=== PATIENT | male | born 1985 | race Caucasian/White ===

== ENCOUNTER 2017-06-17 08:40 | Emergency (ER) | payer SELFPAY ==
--- NOTE | 2017-06-17 09:16 | EDM.PDOC ---
ED HPI GENERAL MEDICAL PROBLEM - General Chief Complaint: Abdominal Pain Stated Complaint: PAIN UPPER MID ABDOMINAL PAIN Time Seen by Provider: 06/17/17 09:08 Source of Information: Reports: Patient History Limitations: Reports: No Limitations - History of Present Illness INITIAL COMMENTS - FREE TEXT/NARRATIVE: 32-year-old male has had several episodes of sharp stabbing epigastric pain over the past 12 hours. His first pain was last evening prior to going to bed, he woke up at 1 AM with pain that resolved. When he woke this morning he had a very dull pain but at work experienced another sharp pain so came in to be seen. No nausea or vomiting, no fever, bowels are moving normally, no past history of abdominal surgeries. No radiation of pain to the back or lower abdomen, no urinary symptoms. Now in the emergency room he has no symptoms. Onset: Sudden Duration: Waxing/Waning (Over the last 12 hours) Location: Reports: Abdomen Severity: Moderate (When the pain occurs, he has no pain currently) Associated Symptoms: Reports: No Other Symptoms Middle Abdominal Pain Score (Numeric/FACES): 3 - Related Data Allergies Allergy/AdvReac Type Severity Reaction Status Date / Time No Known Allergies Allergy Verified 06/17/17 09:09 Home Meds: Home Meds NK [No Known Home Meds] 06/17/17 [History] ED ROS GENERAL - Review of Systems Review Of Systems: See Below Constitutional: Denies: Fever, Chills, Malaise HEENT: Reports: No Symptoms Respiratory: Denies: Shortness of Breath Cardiovascular: Denies: Chest Pain GI/Abdominal: Reports: Abdominal Pain. Denies: Constipation, Diarrhea, Decreased Appetite, Nausea, Vomiting : Reports: No Symptoms Musculoskeletal: Reports: No Symptoms Neurological: Reports: Other (Had a significant head injury at age 17) Psychiatric: Reports: No Symptoms ED EXAM, GI/ABD - Physical Exam Exam: See Below Exam Limited By: No Limitations General Appearance: Alert, No Apparent Distress Eyes: Bilateral: Normal Appearance (No jaundice) Respiratory/Chest: No Respiratory Distress, Lungs Clear, Other (I cannot elicit any pain with palpation of the anterior chest wall) Cardiovascular: Regular Rate, Rhythm GI/Abdominal Exam: Normal Bowel Sounds, Soft, Non-Tender, Other (I cannot reproduce any pain with palpation) Extremities: Normal Inspection Neurological: Alert, Oriented Psychiatric: Normal Affect, Normal Mood Skin Exam: Warm, Dry, Other (No rash over the abdomen or chest) Course - Vital Signs Last Recorded V/S: Last Vital Signs Temp 98.1 F 06/17/17 08:58 Pulse 97 06/17/17 08:58 Resp 14 06/17/17 08:58 BP 136/102 H 06/17/17 08:58 Pulse Ox 97 06/17/17 08:58 - Orders/Labs/Meds Labs: Laboratory Tests 06/17/17 06/17/17 Range/Units 09:26 09:26 WBC 9.4 (4.5-11.0) K/uL RBC 5.28 (4.30-5.90) M/uL Hgb 16.7 H (12.0-15.0) g/dL Hct 47.9 (40.0-54.0) % MCV 91 (80-98) fL MCH 32 H (27-31) pg MCHC 35 (32-36) % Plt Count 268 (150-400) K/uL Neut % (Auto) 68 H (36-66) % Lymph % (Auto) 16 L (24-44) % Cochran % (Auto) 8 H (2-6) % Eos % (Auto) 7 H (2-4) % Baso % (Auto) 0 (0-1) % Sodium 141 (140-148) mmol/L Potassium 4.3 (3.6-5.2) mmol/L Chloride 103 (100-108) mmol/L Carbon Dioxide 29 (21-32) mmol/L Anion Gap 8.9 (5.0-14.0) mmol/L BUN 10 (7-18) mg/dL Creatinine 1.0 (0.8-1.3) mg/dL Est Cr Clr Drug Dosing 125.58 mL/min Estimated GFR (MDRD) > 60 (>60) Glucose 94 (74-106) mg/dL Calcium 9.0 (8.5-10.1) mg/dL Total Bilirubin 0.3 (0.2-1.0) mg/dL AST 17 (15-37) U/L ALT 44 (12-78) U/L Alkaline Phosphatase 107 (46-116) U/L Total Protein 7.1 (6.4-8.2) g/dL Albumin 3.8 (3.4-5.0) g/dL Globulin 3.3 (2.3-3.5) g/dL Albumin/Globulin Ratio 1.2 (1.2-2.2) Amylase 58 (25-115) U/L - Re-Assessments/Exams Free Text/Narrative Re-Assessment/Exam: 06/17/17 09:30 I have the patient stand, heel strike on the floor and it did not reproduce pain. There doesn't seem to be any peritoneal component to the pain. A CBC, CMP , UA and flat and upright abdomen x-ray was obtained. 06/17/17 10:02 Patient's entire chemistry profile including amylase and lipase was normal. White count was normal. He was observed in the ER for one hour and had no additional symptoms. I did order a UA but he was unable to give that over the course of the hour and I don't feel it is necessary so it was canceled. He will return if symptoms recur, a gallbladder ultrasound or other imaging may be necessary. Departure - Departure Time of Disposition: 10:28 Disposition: Home, Self-Care 01 Condition: Good Clinical Impression: Abdominal pain Qualifiers: Abdominal location: upper abdomen, unspecified Qualified Code(s): R10.10 - Upper abdominal pain, unspecified - Discharge Information Instructions: Abdominal Pain, Adult, [id number] Referrals: PCP,None [Primary Care Provider] - Forms: ED Department Discharge Care Plan Goals: Advance diet as tolerated concentrating on liquids initially. Repeat turn if pain recurs and is persistent, especially if fever.
--- NOTE | 2017-06-17 11:03 | CR ---
Abdomen 2V AP Flat Upright HISTORY: pain FINDINGS: Bowel gas pattern is nonspecific. No obstruction or free air is identified. No soft tissue mass, orga nomegaly, or abnormal calcifications are seen. Bony structures are unremarkable. IMPRESSION: Nonspecific abdomen.
== END 2017-06-17 10:22 | disposition home or self-care (01) ==
LOC: JP.ED 08:40
DX: R10.10 Upper abdominal pain, unspecified (principal)
CPT/HCPCS: 36415; 74020; 74020-26; 80053; 82150; 85025; 99283; 99284

== ENCOUNTER 2020-05-25 17:07 | Emergency (ER) | payer SELFPAY ==
[2020-05-25] MEDS ORDERED: Ketorolac 60 MG/2 ML SDV IM ONE (17:42)
--- NOTE | 2020-05-25 17:47 | EDM.PDOC ---
ED HPI GENERAL MEDICAL PROBLEM - General Chief Complaint: Upper Extremity Injury/Pain Stated Complaint: RT ARM PAIN Time Seen by Provider: 05/25/20 17:33 Source of Information: Reports: Patient, RN Notes Reviewed History Limitations: Reports: No Limitations - History of Present Illness INITIAL COMMENTS - FREE TEXT/NARRATIVE: 34-year-old gentleman presents emergency department with a complaint of right arm pain, this is his dominant hand he thinks he may have injured it a couple weeks ago when he was rockclimbing he continues to do various things at work lifting and supination which may aggravate it he has not really tried anything for the pain Right Arm Pain Score (Numeric/FACES): 2 - Related Data Allergies Allergy/AdvReac Type Severity Reaction Status Date / Time No Known Allergies Allergy Verified 05/25/20 17:22 Home Meds: Home Meds Ketorolac [Toradol] 10 mg PO Q6H PRN #20 tab 05/25/20 [Rx] Past Medical History HEENT History: Reports: Impaired Vision Cardiovascular History: Reports: None Neurological History: Reports: Head Trauma Psychiatric History: Reports: Depression - Infectious Disease History Infectious Disease History: Reports: Chicken Pox - Past Surgical History Head Surgeries/Procedures: Reports: None HEENT Surgical History: Reports: None Cardiovascular Surgical History: Reports: Other (See Below) Other Cardiovascular Surgeries/Procedures: HEAD INJURY, SHORT TERM MEMORY LOSS, WHIPLASH Neurological Surgical History: Reports: Other (See Below) Other Neurological Surgeries/Procedures: SEE HEENT Dermatological Surgical History: Reports: None Social & Family History - Tobacco Use Smoking Status *Q: Former Smoker Used Tobacco, but Quit: Yes Month/Year Tobacco Last Used: 2006 Second Hand Smoke Exposure: No - Caffeine Use Caffeine Use: Reports: Soda - Recreational Drug Use Recreational Drug Use: No Review of Systems - Review of Systems Review Of Systems: See Below Constitutional: Reports: No Symptoms Musculoskeletal: Reports: Arm Pain ED EXAM, GENERAL - Physical Exam Exam: See Below Free Text/Narrative:: Examination of the right arm he is point tender at the insertion of the biceps tendon inferiorly it is exacerbated by flexing and supination, radial pulses +2 Exam Limited By: No Limitations General Appearance: Alert, WD/WN, No Apparent Distress Respiratory/Chest: No Respiratory Distress Course - Vital Signs Last Recorded V/S: Last Vital Signs Temp 98.2 F 05/25/20 17:23 Pulse 86 05/25/20 17:23 Resp 16 05/25/20 17:23 BP 142/100 H 05/25/20 17:23 Pulse Ox 97 05/25/20 17:23 - Orders/Labs/Meds Orders: Active Orders 24 hr Category Date Time Status Ketorolac [Toradol] Med 05/25/20 17:42 Once 60 mg IM ONETIME ONE Departure - Departure Time of Disposition: 17:46 Disposition: Home, Self-Care 01 Condition: Fair Clinical Impression: Biceps tendinitis on right - Discharge Information Instructions: Tendinitis Referrals: Ruben Bah MD [Primary Care Provider] - Additional Instructions: Try the ketorolac as needed for pain control, try various resting maneuvers at work and trying to find an alternative method then using her dominant hand to give this tendon rest, please followup with your primary care provider in 7-10 days if not better, please call return to the emergency department with worsening of symptoms. Sepsis Event Note (ED) - Evaluation Sepsis Screening Result: No Definite Risk - Focused Exam Vital Signs: Vital Signs Temp Pulse Resp BP Pulse Ox 05/25/20 17:23 98.2 F 86 16 142/100 H 97 05/25/20 17:17 98.2 F 86 16 142/100 H 97 - My Orders Last 24 Hours: My Active Orders 05/25/20 17:42 Ketorolac [Toradol] 60 mg IM ONETIME ONE - Assessment/Plan Last 24 Hours: My Active Orders 05/25/20 17:42 Ketorolac [Toradol] 60 mg IM ONETIME ONE Plan: Assessment Acuity = acute Site and laterality = biceps tendinitis Etiology = secondary to overuse injury Manifestations = none Location of injury = Home Lab values = none Plan He had some relief with the Toradol injection provided in the ED prescription for ketorolac 10 mg p.o. every 6 hours as needed total #20 I did offer him referral to orthopedics which he declined he is going to try alternative methods at work otherwise follow-up with his primary This note was dictated using [employer] voice recognition software please call with any questions on syntax or grammar.
== END 2020-05-25 18:04 | disposition home or self-care (01) ==
LOC: JP.ED 17:07
DX: M75.21 Bicipital tendinitis, right shoulder (principal); Z87.891 Personal history of nicotine dependence
CPT/HCPCS: 96372; 99283; J1885

== ENCOUNTER 2020-09-27 23:36 | Emergency (ER) | payer SELFPAY ==
[2020-09-27] MEDS: Bupivacaine 0.5% 10 ML SDV INJECT ONE (23:55)
--- NOTE | 2020-09-28 00:31 | EDM.PDOC ---
ED HPI GENERAL MEDICAL PROBLEM - General Chief Complaint: Laceration Stated Complaint: CUT RIGHT THUMB Time Seen by Provider: 09/27/20 23:45 Source of Information: Reports: Patient History Limitations: Reports: No Limitations - History of Present Illness INITIAL COMMENTS - FREE TEXT/NARRATIVE: 35-year-old male with a right thumb injury, his thumb was struck by a table saw. He has a very deep macerated laceration from the IP joint curving upward along the radial aspect of the thumb through the nail into the tip of the thumb. Onset: Sudden Duration: Hour(s): (Within the last hour) Location: Reports: Upper Extremity, Right Associated Symptoms: Reports: No Other Symptoms right thumb Pain Score (Numeric/FACES): 6 - Related Data Allergies Allergy/AdvReac Type Severity Reaction Status Date / Time No Known Allergies Allergy Verified 09/27/20 23:46 Home Meds: Home Meds NK [No Known Home Meds] 09/27/20 [History] Past Medical History HEENT History: Reports: Impaired Vision Cardiovascular History: Reports: Arrhythmia Neurological History: Reports: Head Trauma Psychiatric History: Reports: Depression - Infectious Disease History Infectious Disease History: Reports: Chicken Pox - Past Surgical History Head Surgeries/Procedures: Reports: None HEENT Surgical History: Reports: None Cardiovascular Surgical History: Reports: Other (See Below) Other Cardiovascular Surgeries/Procedures: HEAD INJURY, SHORT TERM MEMORY LOSS, WHIPLASH Neurological Surgical History: Reports: Other (See Below) Other Neurological Surgeries/Procedures: SEE HEENT Dermatological Surgical History: Reports: None Social & Family History - Tobacco Use Tobacco Use Status *Q: Never Tobacco User - Caffeine Use Caffeine Use: Reports: Soda - Recreational Drug Use Recreational Drug Use: No ED ROS GENERAL - Review of Systems Review Of Systems: See Below Constitutional: Reports: Malaise. Denies: Fever, Chills GI/Abdominal: Reports: Nausea Skin: Reports: Pallor, Diaphoresis Neurological: Reports: Dizziness ED EXAM, SKIN/RASH Exam: See Below Exam Limited By: No Limitations General Appearance: Alert, Mild Distress, Other (Patient is very anxious and somewhat vagal with pallor) Head: Atraumatic Respiratory/Chest: No Respiratory Distress Extremities: Other (Exam is otherwise limited to the right hand. The patient has a significant and very deep laceration 5 cm long across the tip of the thumb through the radial aspect of the nail and down curving across the base of the pulp just distal to the DIP joint. There is capillary refill and slight sensation to the pulp.) Neurological: Alert, Oriented Psychiatric: Anxious Course - Vital Signs Last Recorded V/S: Last Vital Signs Temp 97.5 F 09/27/20 23:55 Pulse 96 09/27/20 23:55 Resp 22 H 09/27/20 23:55 BP 158/83 H 09/27/20 23:55 Pulse Ox 98 09/27/20 23:55 - Orders/Labs/Meds Orders: Active Orders 24 hr Category Date Time Status Consult to Orthopedic Clinic [CONS] Routine Cons 09/28/20 00:53 Active Fingers Thumb Rt F5 [CR] Stat Exams 09/28/20 00:24 Taken Meds: Medications Discontinued Medications Generic Name Dose Route Start Last Admin Trade Name Freq PRN Reason Stop Dose Admin Bacitracin 1 dose 09/28/20 00:35 09/28/20 00:40 Bacitracin Oint 1 Gm TOP 09/28/20 00:36 1 dose ONETIME ONE Administration Bupivacaine HCl 10 ml 09/27/20 23:45 09/27/20 23:55 Sensorcaine-Mpf 0.5% INJECT 09/27/20 23:46 10 ml ONETIME ONE Administration Diphtheria/Tetanus/Acell Pertussis 0.5 ml 09/28/20 00:49 09/28/20 00:58 Boostrix IM 09/28/20 00:50 0.5 ml .ONCE ONE Administration - Re-Assessments/Exams Free Text/Narrative Re-Assessment/Exam: 09/28/20 00:51 The thumb was anesthetized with a digital blockade of Marcaine 0.5%. It was then thoroughly washed with saline for 15 minutes. The radial aspect of the thumbnail was removed, and the nailbed approximated as well as the pulp of the thumb. Ten 4-0 Vicryl suture units was used to close the laceration as best possible although the edges were very irregular and macerated due to the table saw blade. An x-ray was then performed that showed a complete transection of the distal phalanx with some bone absent. The thumb was then covered with topical bacitracin, nonstick Adaptic and a tube gauze. He was started on Augmentin 875 twice daily and given 15 Percocet for extra pain control. He was encouraged to elevate the thumb, use anti-inflammatories and Percocet for pain control and I would like him to recheck with Dr. Díaz at the orthopedic clinic on . 09/28/20 01:01 Tetanus was given, dressing was applied and the patient was tolerating symptoms well. I will call Dr. Díaz in the morning to discuss whether he has anyt yousuf to offer this patient or he needs to go onto a hand specialist. Departure - Departure Time of Disposition: 01:07 Disposition: Home, Self-Care 01 Clinical Impression: Laceration of right thumb Qualifiers: Encounter type: initial encounter Damage to nail status: with damage Foreign body presence: without foreign body Qualified Code(s): S61.111A - Laceration without foreign body of right thumb with damage to nail, initial encounter Phalanx, distal fracture of finger Qualifiers: Encounter type: initial encounter Finger: thumb Fracture type: open Fracture alignment: displaced Laterality: right Qualified Code(s): S62.521B - Displaced fracture of distal phalanx of right thumb, initial encounter for open fracture - Discharge Information Instructions: Laceration Care, Adult, [id number] Referrals: Ruben Bah MD [Primary Care Provider] - Forms: ED Department Discharge Care Plan Goals: Keep wound covered until recheck with Dr. Díaz on . Take antibiotic twice daily with food, a regular dose of ibuprofen or Aleve along with elevation of the thumb may be helpful and add Percocet if extra pain control is needed. Call the orthopedic clinic tomorrow for an appointment time. Sepsis Event Note (ED) - Evaluation Sepsis Screening Result: No Definite Risk - Focused Exam Vital Signs: Vital Signs Temp Pulse Resp BP Pulse Ox 09/27/20 23:55 97.5 F 96 22 H 158/83 H 98 09/27/20 23:53 97.5 F 96 22 H 158/83 H 98 - My Orders Last 24 Hours: My Active Orders 09/28/20 00:24 Fingers Thumb Rt F5 [CR] Stat 09/28/20 00:53 Consult to Orthopedic Clinic [CONS] Routine - Assessment/Plan Last 24 Hours: My Active Orders 09/28/20 00:24 Fingers Thumb Rt F5 [CR] Stat 09/28/20 00:53 Consult to Orthopedic Clinic [CONS] Routine
[2020-09-28] MEDS: Bacitracin Oint 1 GM U/D Packet TOP ONE (00:40)
[2020-09-28] MEDS: Diphtheria,Pertussis(Acell),Tetanus Vaccine 0.5 ML Syringe IM ONE (00:58)
--- NOTE | 2020-09-28 09:33 | CR ---
Fingers Thumb Rt F5 CLINICAL HISTORY: Laceration FINDINGS: There is soft tissue laceration in the distal thumb. There is a transverse comminuted displaced fracture of the distal portion of the distal phalanx IMPRESSION: Displaced distal phalangeal fracture
== END 2020-09-28 01:20 | disposition home or self-care (01) ==
LOC: JP.ED 23:36
DX: S62.521B Displaced fracture of distal phalanx of right thumb, initial encounter for open fracture (principal); Z23 Encounter for immunization; W27.0XXA Contact with workbench tool, initial encounter
CPT/HCPCS: 11760; 73140-26-F5; 73140-F5; 90471; 90715; 99283-25; J3490

== ENCOUNTER 2020-10-03 06:55 | Day surgery (SDC) | payer OTHER, BC ==
[2020-10-03] MEDS ORDERED: Lactated Ringers 1,000 ML IV SCH (08:00)
[2020-10-03] MEDS ORDERED: Nozin Nasal Sanitizer NASBOTH ONE (08:00)
[2020-10-03] MEDS ORDERED: ceFAZolin 2 GM in Premix Bag 1 BAG IV ONE (08:30)
[2020-10-03] MEDS ORDERED: Midazolam 1 MG/ML 2 ML SDV ONE ×2 (08:41→09:40)
[2020-10-03] MEDS ORDERED: Propofol 200 MG/20 ML SDV ONE ×4 (08:41→10:52)
[2020-10-03] MEDS ORDERED: Lidocaine 0.5% 50 ML SDV ONE (08:41)
[2020-10-03] MEDS ORDERED: fentaNYL 100 MCG/2 ML SDV ONE ×2 (08:41→09:40)
[2020-10-03] MEDS ORDERED: Bupivacaine 0.5% 30 ML SDV ONE (08:51)
--- NOTE | 2020-10-11 21:08 | OR ---
DATE OF PROCEDURE: 10/03/2020 SURGEON: Werner Díaz MD PREOPERATIVE DIAGNOSES: 1. Table saw injury, right thumb with open fracture distal phalanx including bone loss. 2. Digital nerve laceration, right thumb and nail bed injury, right thumb with complex skin laceration. POSTOPERATIVE DIAGNOSES: 1. Table saw injury, right thumb with open fracture distal phalanx including bone loss. 2. Digital nerve laceration, right thumb and nail bed injury, right thumb with complex skin laceration. PROCEDURES: Repair of the nail bed, right thumb. Repair of digital nerve, right thumb ulnar aspect just distal to PIP. Open reduction and percutaneous pinning, distal phalanx, right thumb with autologous bone graft from distal radius. KIT ASSEMBLER: NERY Hooks. ANESTHESIA: Miguel A block with sedation. INDICATIONS: Virgilio is a 35-year-old gentleman who sustained a work-related injury to his right thumb in a table saw accident. It was a complex laceration over the pulp of the thumb and into the nail bed. This included sawblade through the midportion of the distal phalanx with bone loss. He also has no sensation on the ulnar aspect of the thumb distal to the laceration consistent with digital nerve injury. He now presents for percutaneous pinning and possible bone grafting of the distal phalanx, repair of the nailbed, and possible digital nerve repair. The risks, benefits, potential complications of the procedure were discussed. The assistance of NERY was utilized for retraction, exposure and positioning of the thumb and fracture fragment. DESCRIPTION OF PROCEDURE: After adequate anesthesia was obtained, the right hand and thumb were prepped and draped in a sterile fashion. Several of the sutures placed in the emergency department were removed for exposure of the fracture. Fragments were identified, positioned and attempt was made to get the fragments as close together as possible with bony apposition. Under fluoroscopic guidance, 2 percutaneous pins were placed. This resulted in very good position of the distal fragment with residual diastasis of the fracture fragments. A decision was made to proceed with autologous bone grafting. With the fragment stabilized, attention was turned to the digital nerve. Neurovascular bundles were identified and dissected out with tenotomy scissors. The edges of both the distal and proximal ends of the nerve were identified and it was determined that these could be reapproximated without significant tension. A 6-0 nylon suture was then placed in the perineurium, 1 on each side of the nerve after freshening the edges of the laceration. This resulted in minimal to no tension on the repair. After removal of additional previously placed sutures through the nail, the nail bed was reapproximated in anatomic position and then repaired with additional 4-0 nylon sutures. Attention was then turned to the distal radius. A longitudinal incision was made over the volar aspect of the radius, radial to the flexor tendons. This was carried down through the retinaculum maintaining a portion of the retinaculum intact distally. Radial artery was retracted radially. The flexor tendons were retracted ulnarly and the distal radius was exposed. A curved osteotome was then used to make a window into the metaphyseal bone. Using a combination of a small curette and a Meherrin elevator, metaphyseal bone was harvested from the distal radius. This was kept in a small specimen cup. This was irrigated and then packed while the attention was returned back to the thumb. Bone graft was packed into the fracture site and the remaining laceration was then closed using 4-0 nylon in interrupted fashion. Incision over the distal radius was closed with 2-0 Vicryl in the dermal layer and a running 3-0 Monocryl. Steri-Strips were then applied. The radial incision was injected with 0.5% Marcaine and a digital block was performed on the thumb at the level of the MCP joint. Wounds were then dressed with Xeroform, sterile gauze and well-padded thumb spica splint was applied. The percutaneous pins were cut several millimeters beyond the insertion site and Jurgan Balls were placed over the ends of the pins. The patient tolerated procedure very well. There were no complications. Taken from the operating room in stable condition. Werner Díaz MD /[id number] LAT[facility]
== END 2020-10-03 13:00 | disposition home or self-care (01) ==
LOC: JP.SDS 06:55
PROVIDERS: ATTEND Specialist
DX: S62.521B Displaced fracture of distal phalanx of right thumb, initial encounter for open fracture (principal); S64.31XA Injury of digital nerve of right thumb, initial encounter; Z01.812 Encounter for preprocedural laboratory examination; Z20.822 Contact with and (suspected) exposure to COVID-19; Z87.820 Personal history of traumatic brain injury; W31.2XXA Contact with powered woodworking and forming machines, initial encounter; Y99.0 Civilian activity done for income or pay
CPT/HCPCS: 11760; 20900; 26756; 36415; 64831; 76000; 80053; 85027; 87635; A9270; J2250; J2704; J3010; J3490; J7120; U0002

== ENCOUNTER 2020-11-05 14:49 | Emergency (ER) | payer BC ==
[2020-11-05] MEDS ORDERED: Ketorolac 60 MG/2 ML SDV IM ONE (16:31)
[2020-11-05] MEDS ORDERED: Gabapentin 300 MG Cap PO ONE (16:32)
[2020-11-05] MEDS ORDERED: predniSONE 20 MG Tab PO ONE (16:32)
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
== END 2020-11-05 17:08 | disposition home or self-care (01) ==
LOC: JP.ED 14:49
DX: M54.42 Lumbago with sciatica, left side (principal); Z79.899 Other long term (current) drug therapy
CPT/HCPCS: 96372; 99283; A9270-GY; J1885; J7512

== ENCOUNTER 2020-11-07 09:24 | Emergency (ER) | payer BC ==
[2020-11-07] MEDS ORDERED: HYDROmorphone 1 MG/ML Syringe IM ONE (09:50)
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
[2020-11-07] MEDS ORDERED: LORazepam 2 MG/ML SDV IVPUSH ONE (10:12)
[2020-11-07] MEDS ORDERED: Ketorolac 30 MG/ML SDV IVPUSH ONE (10:12)
--- NOTE | 2020-11-07 12:44 | MR ---
Lumbar Spine Comp wo Cont Limited CLINICAL HISTORY: Left lower extremity and back pain COMPARISON: None TECHNIQUE: T1 and T2 pulse sequences were obtained through the lumbar spine in the sagittal planes without the IV infusion of contrast material. All images were obtained on a 1.5 Sandee unit. Axial images were unable to be performed due to the patient not tolerating the procedure causing early termination.. FINDINGS: Sagittal images show the lumbar vertebral configuration and signal of the lumbar vertebrae. There is straightening of the lumbar lordosis. There is normal signal and configuration of the L1-2, L2-3 and L3-4 discs. There is narrowing and decreased signal in the L4-5 disc with a large left posterior disc protrusion. This extends to the inner margin of the left neural foramina and causes some impingement on the left lateral recess and probably the transiting left lower nerve roots. The conus medullaris and spinal nerve roots have a normal signal and configuration. IMPRESSION: Limited study due to patient intolerance. Large left posterior disc protrusion at L4-5 encroaching on the left lateral recess and neural foramina and the transiting lower left nerve roots Straightening of the lumbar lordosis suggests spasm
[2020-11-07] MEDS ORDERED: methylPREDNISolone Sodium Succinate 125 MG/2 ML SDV IVPUSH ONE (13:15)
== END 2020-11-07 13:30 | disposition home or self-care (01) ==
LOC: JP.ED 09:24
DX: M54.42 Lumbago with sciatica, left side (principal); Z98.890 Other specified postprocedural states
CPT/HCPCS: 72148; 72148-26; 96372; 96374; 96375; 99283; 99283-25; J1170; J1885; J2060; J2930

== ENCOUNTER 2021-10-11 05:13 | Emergency (ER) | payer SELFPAY | END 2021-10-11 06:06 | disposition home or self-care (01) | LOC: JP.ED 05:13 | DX: S63.501A Unspecified sprain of right wrist, initial encounter (principal); Z91.018 Allergy to other foods; W00.9XXA Unspecified fall due to ice and snow, initial encounter | CPT/HCPCS: 73110-RT; 99282; 99283 ==

== ENCOUNTER → 2023-06-15 | Day surgery (SDC) | payer SELFPAY ==
[~2023-06-15] MED LIST: Midazolam 1 MG/ML 2 ML SDV ONE; Propofol 200 MG/20 ML SDV ONE; fentaNYL 50 MCG/ML SDV ONE
== END ==
LOC: JP.ED 15:26 → JP.SDS 16:00
PROVIDERS: ATTEND Surgery
DX: T18.128A Food in esophagus causing other injury, initial encounter (principal)
CPT/HCPCS: 43247; 71045; 99283; J2250; J2704; J3010